=== PATIENT | female | born 1955 | race Caucasian/White ===

== ENCOUNTER 2016-12-13 10:55 | Emergency (ER) | payer MEDICAID, OTHER ==
[~2016-12-13] VITALS: Wt 72.9 kg
[~2016-12-13 10:55] MED LIST: ASPI81TA3 PO; FAMO-95 PO; LANT3I SC; METF-382 PO; NICO-512 TRANSDERM; SMV40T PO
[2016-12-13] MEDS ORDERED: KETOROLAC 30 MG INJ IM STA (12:17)
[2016-12-13] MEDS ORDERED: BUPR-75 PO (12:21)
[2016-12-13] MEDS ORDERED: MELO7.5O PO (12:21)
--- NOTE | 2016-12-13 12:38 | ERD ---
ER Documentation Chief Complaint Date/Time DATE: 12/13/16 TIME: 12:31 Chief Complaint gen leg weakness and right leg pain and vision disturbance.mild curtis HPI This is a 61-year-old woman with multiple complaints including at least 2 months of low back pain radiating down both legs and paresthesias to the lateral thighs and lower legs. She states a previous CT scan of the back revealed arthritic changes to the lumbar spine and she was told she may require orthopedic spinal surgery. She is currently in a rehabilitation program 3 times per week and has been attending for the last 3 months, the program consists of exercising and stretching. She complains of chronic soft tissue swelling to the right hand and weakness to the hand because of pain and states she always feels weak in her upper and lower extremities bilaterally. She states she has daily intermittent sharp nonexertional nonradiating chest pain as well. Patient states she knows she has depression although denies suicidal homicidal ideation and does not take her antidepressants. She denies fevers or chills, no weight loss, no loss of bowel or bladder control, no headache or blurry vision, no vomiting or diarrhea. Patient denies dysuria. I also reviewed the triage and reported chief complaint. ROS All systems reviewed and are negative except as per history of present illness. Medications Home Meds Active Scripts Meloxicam* (Meloxicam*) 7.5 Mg/5 Ml Oral.susp, 7.5 MG PO DAILY, #30 ML Prov:THUY MOLINA MD 12/13/16 Bupropion Hcl* (Wellbutrin XL*) 150 Mg Tab.sr.24h, 150 MG PO DAILY, #30 TAB.SA Prov:THUY MOLINA MD 12/13/16 Metformin Hcl* (Metformin Hcl*) 500 Mg Tablet, 500 MG PO WITH BREAKFAST DINNE, # 60 TAB Prov:JAROCHO CABRAL MD 04/03/15 Simvastatin (Simvastatin) 40 Mg Tablet, 40 MG PO HS, #30 TAB Prov:JAROCHO CABRAL MD 04/03/15 Nicotine* (Nicoderm* Patch) 1 Patch Patch, 1 PATCH TRANSDERM DAILY, #30 PATCH Prov:JAROCHO CABRAL MD 04/03/15 Famotidine* (Pepcid* AC) 20 Mg Tab, 20 MG PO DAILY, #30 TAB Prov:JAROCHO CABRAL MD 04/03/15 Aspirin (Aspirin) 81 Mg Chew, 81 MG PO DAILY, #30 TAB Prov:JAROCHO CABRAL MD 04/03/15 Reported Medications Insulin Glargine* (Lantus*) 100 Unit/Ml Soln, 25 UNIT SC HS, EA 04/01/15 Allergies Allergies: Coded Allergies: No Known Allergy (Unverified , 04/01/15) PMhx/Soc Depression/anxiety, dyslipidemia, arthritis, hypertension, diabetes mellitus, obesity History of Surgery: Yes (PELVIC SX) Anesthesia Reaction: No Hx Neurological Disorder: Yes (NEUROPATHY, SCIATICA) Hx Respiratory Disorders: Yes (ASTHMA A CHILD) Hx Cardiac Disorders: Yes (HTN, HDL) Hx Psychiatric Problems: Yes (DEPRESSION, ANXIETY) Hx Miscellaneous Medical Probl: Yes (DM) Hx Alcohol Use: No Hx Substance Use: No Hx Tobacco Use: Yes Smoking Status: Current every day smoker FmHx Family History: No diabetes Physical Exam Vitals Vital Signs Date Time Temp Pulse Resp B/P Pulse Ox O2 Delivery O2 Flow Rate FiO2 12/13/16 11:02 98.9 100 20 140/70 98 Physical Exam GENERAL: Well-developed, well-nourished, well-hydrated, in no apparent distress , looks nontoxic in appearance HEENT: Moist mucous membranes, pink conjunctiva, no cervical spine tenderness or step-off deformities, no goiter, no jaundice or icterus, extraocular movements intact without pain. No submandibular induration, and no pharyngeal erythema NEURO: Alert and oriented 3, cranial nerves II through XII intact bilaterally, pupils equal round reactive to light, no focal deficits or facial asymmetry, sensation intact distally Strength 5/5 in upper and lower extremities bilaterally CARDIAC: Regular rate and rhythm, no murmurs rubs or gallops LUNGS: Clear bilaterally no wheezing crackles or stridor ABDOMEN: Soft nontender, no guarding, no rigidity, no rebound, no psoas sign no obturator sign. Normoactive bowel sounds SKIN: Warm and dry to touch, no abrasions, contusions, or hematomas, no lacerations, no ecchymosis, no target lesions, and without ulcers EXTREMITIES: Positive soft tissue edema to the right hand without skin erythema or induration, calves are bilaterally symmetrical, no Homans sign, no popliteal cord sign. Distal pulses equal and bilateral PSYCH: Depressed affect Results 24 hrs Current Medications Medications (Trade) Dose Ordered Sig/Elif Route PRN Reason Start Time Stop Time Status Last Admin Dose Admin Ketorolac Tromethamine (Toradol) 30 mg ONCE STAT IM 12/13/16 12:17 12/13/16 12:18 DC 12/13/16 12:30 Procedures/MDM Patient was placed on rug receiving clerk rhythm strip revealed a sinus rhythm at about 90 bpm with upright P and T waves. Patient was afebrile. I administered Toradol 30 mg intramuscular injection for her symptoms. EKG performed, read by me: 94 bpm, normal sinus rhythm, normal axis, no acute ST segment changes, narrow QRS complex, with good R-wave progression in precordial leads. I had a very long discussion with the patient at the bedside regarding all of her symptoms. Her management is ongoing and is coordinated by her primary care physician appropriately. She is currently in a rehabilitation program 3 times a week to help alleviate her low back and leg pain, surgical option has been brought to her attention and she is thinking about it and will make a decision after 6 months of rehabilitation. I have no indication at this time for any further intervention, imaging, or admission. I did recommend an antidepressant , which I prescribed for daily use until she follows up with her PMD. She has been using naproxen for complaints of pain, I told her to stop and instead prescribe meloxicam daily. She is stable for outpatient management. Differential diagnoses considered, included but not limited to acute coronary syndrome, pulmonary embolism, aortic dissection, abdominal aortic aneurysm, sepsis, stroke, meningitis, encephalitis, pneumonia, appendicitis, cholecystitis , bowel obstruction, pyelonephritis, nephrolithiasis, cystitis, as well as metabolic, hematologic, and electrolyte abnormalities. As well as abscess, cellulitis, fractures, and dislocations. Patient feels much better at this time, and vital signs are normal, symptoms have improved. I did give strict instructions to return to the ED if symptoms continue or worsen, patient will otherwise follow-up with primary care physician. Patient understood instructions and agreed to plan. Departure Diagnosis: Primary Impression: Depressed Depression Type: dysthymia Qualified Code: F34.1 - Dysthymia Additional Impressions: Sciatica Laterality: bilateral Qualified Code: M54.31 - Bilateral sciatica Arthritis Chest pain Chest pain type: unspecified Qualified Code: R07.9 - Chest pain, unspecified type Condition: Good Patient Instructions: What Is Arthritis?, Depression, Back Pain W/ Sciatica THUY MOLINA MD Dec 13, 2016 12:38
[2016-12-13 13:18] VITALS: BP 136/78; PULSE 90; RESP 20; TEMP 98
== END 2016-12-13 13:22 | disposition home or self-care (01) ==
LOC: E/R 10:55
DX: F34.1 Dysthymic disorder (principal); M54.41 Lumbago with sciatica, right side; M54.42 Lumbago with sciatica, left side; M19.90 Unspecified osteoarthritis, unspecified site; R07.9 Chest pain, unspecified; I10 Essential (primary) hypertension; E11.9 Type 2 diabetes mellitus without complications; E66.9 Obesity, unspecified; J45.909 Unspecified asthma, uncomplicated; F17.210 Nicotine dependence, cigarettes, uncomplicated; Z79.84 Long term (current) use of oral hypoglycemic drugs; Z79.82 Long term (current) use of aspirin; Z79.4 Long term (current) use of insulin
CPT/HCPCS: 93005; 96372; J1885; Z7502